=== PATIENT | female | born 2005 | race Caucasian/White ===

== ENCOUNTER 2024-09-28 05:40 | Emergency (ER) | payer OTHER ==
[~2024-09-28] VITALS: Ht 167.6 cm; Wt 78.1 kg
[2024-09-28 05:42] VITALS: BP 128/80; TEMP 98.5; O2SAT 98
[2024-09-28] MEDS: NS (Normal Saline) 0.9% 1,000 ML IV ONE (06:28)
[2024-09-28] MEDS: ACETAMINOPHEN *IV* 1,000 MG in IV 1 EA IV ONE (06:28)
== END 2024-09-28 07:09 | disposition left against medical advice (07) ==
LOC: M ED 05:40
DX: G43.909 Migraine, unspecified, not intractable, without status migrainosus (principal); Z53.20 Procedure and treatment not carried out because of patient's decision for unspecified reasons; Z88.1 Allergy status to other antibiotic agents
CPT/HCPCS: 96374; 96375; 99283; J0131; J2765

== ENCOUNTER → 2024-11-15 | Outpatient (CLI) | payer OTHER | LOC: M WHC 10:02 | PROVIDERS: ATTEND Obstetrics & Gynecology | DX: Z36.89 Encounter for other specified antenatal screening (principal); O32.1XX0 Maternal care for breech presentation, not applicable or unspecified; Z3A.21 21 weeks gestation of pregnancy ==

== ENCOUNTER → 2024-12-17 | Outpatient (CLI) | payer OTHER ==
[2024-12-17 14:04] LABS: PLATELET COUNT, AUTOMATED 329 10^3/uL (150-450)
[2024-12-17 14:07] LABS: GLUCOSE CHALLENGE TEST 1 HOUR 136 MG/DL (LESS THAN 140)
[2024-12-17 14:38] LABS: Trichomonas vaginalis (AMP) NOT DETECTED (NEGATIVE)
[2024-12-17 14:41] LABS: HIV 1&2 SCREEN NEGATIVE (NEGATIVE)
[2024-12-17 14:49] LABS: HEPATITIS C VIRUS ABY INDEX 0.02 INDEX (<0.8)
[2024-12-17 15:01] LABS: GC DNA AMPLIFICATION NEGATIVE (NEGATIVE)
== END ==
LOC: M PLALAB 09:31
PROVIDERS: ATTEND Obstetrics & Gynecology
DX: Z34.92 Encounter for supervision of normal pregnancy, unspecified, second trimester (principal)

== ENCOUNTER → 2024-12-20 | Outpatient (CLI) | payer OTHER | LOC: M WHC 07:09 | PROVIDERS: ATTEND Obstetrics & Gynecology | DX: Z34.82 Encounter for supervision of other normal pregnancy, second trimester (principal) ==

== ENCOUNTER → 2025-02-15 | Outpatient (CLI) | payer OTHER ==
[~2025-02-15] MED LIST: ACET-897 PO; BENA25CA4 PO; FLUO-290 PO; PREN27TA3 PO; TUMS500C PO
[2025-02-15 12:26] LABS: PLATELET COUNT, AUTOMATED 285 10^3/uL (150-450)
[2025-02-15 12:53] LABS: LDH LACTATE DEHYDROGENASE 165 U/L (120-246)
[2025-02-15 12:55] LABS: ALT/SGPT 15 U/L (7.0-40); AST/SGOT 16 U/L (<34); CREATININE FOR GFR 0.51 MG/DL (0.55-1.30); GLOMERULAR FILTRATION RATE > 90.0 (>60)
[2025-02-15 14:51] LABS: TOTAL PROTEIN,RANDOM URINE 25.8 MG/DL (0.0-14.0)
== END ==
LOC: M PLALAB 09:35
PROVIDERS: ATTEND Advanced Practice Midwife
DX: O13.9 Gestational [pregnancy-induced] hypertension without significant proteinuria, unspecified trimester (principal)

== ENCOUNTER 2025-02-16 13:13 | Outpatient (CLI) | payer OTHER ==
[~2025-02-16] VITALS: Ht 167.6 cm; Wt 86.6 kg
[2025-02-16] VITALS (13 sets, daily range): BP systolic 113–137; BP diastolic 64–93; O2SAT 98–99
[2025-02-16] MEDS ORDERED: FLUO-290 PO (13:34)
[2025-02-16] MEDS ORDERED: TUMS500C PO (13:34)
[2025-02-16] MEDS ORDERED: ACET-897 PO (13:34)
[2025-02-16] MEDS ORDERED: PREN27TA3 PO (13:34)
[2025-02-16] MEDS ORDERED: HOME MED LIST COMPLETE! XX SCH (13:40)
== END 2025-02-16 17:52 | disposition home or self-care (01) ==
LOC: M LDO 13:13
PROVIDERS: ATTEND Advanced Practice Midwife
DX: O26.893 Other specified pregnancy related conditions, third trimester (principal); O36.8130 Decreased fetal movements, third trimester, not applicable or unspecified; R10.11 Right upper quadrant pain; R51.9 Headache, unspecified; O13.3 Gestational [pregnancy-induced] hypertension without significant proteinuria, third trimester; Z3A.35 35 weeks gestation of pregnancy
CPT/HCPCS: 59025; 76816; 76820; G0463

== ENCOUNTER 2025-02-18 09:59 | Outpatient (CLI) | payer OTHER ==
[~2025-02-18] VITALS: Ht 167.6 cm; Wt 88.0 kg
[~2025-02-18 09:59] MED LIST changes: -BENA25CA4 PO
[2025-02-18] MEDS ORDERED: BENA25CA4 PO (10:09)
[2025-02-18 10:18] VITALS: BP 137/80
[2025-02-18 10:35] VITALS: BP 118/87
[2025-02-18 10:49] VITALS: BP 115/82
[2025-03-02] MEDS ORDERED: TUMS500C PO (07:57)
[2025-03-03] MEDS ORDERED: COLA100C5 PO (22:25)
[2025-03-03] MEDS ORDERED: IBUP80TA PO (22:25)
[2025-03-05] MEDS ORDERED: LABE20TAB PO (13:36)
[2025-03-05] MEDS ORDERED: PERCOCET PO (13:36)
== END 2025-02-18 16:05 | disposition home or self-care (01) ==
LOC: M LDO 09:59
PROVIDERS: ATTEND Advanced Practice Midwife
DX: O99.353 Diseases of the nervous system complicating pregnancy, third trimester (principal); G43.909 Migraine, unspecified, not intractable, without status migrainosus; O99.343 Other mental disorders complicating pregnancy, third trimester; O10.013 Pre-existing essential hypertension complicating pregnancy, third trimester; F41.9 Anxiety disorder, unspecified; Z3A.35 35 weeks gestation of pregnancy
CPT/HCPCS: 59025; G0463

== ENCOUNTER → 2025-03-01 | Outpatient (CLI) | payer OTHER ==
[~2025-03-01] MED LIST changes: +BENA25CA4 PO; +COLA100C5 PO; +IBUP80TA PO; +LABE20TAB PO; +PERCOCET PO
[2025-03-01 13:56] LABS: PLATELET COUNT, AUTOMATED 254 10^3/uL (150-450)
[2025-03-01 13:59] LABS: LDH LACTATE DEHYDROGENASE 158 U/L (120-246)
[2025-03-01 14:00] LABS: ALT/SGPT 13 U/L (7.0-40); AST/SGOT 17 U/L (<34); CREATININE FOR GFR 0.54 MG/DL (0.55-1.30); GLOMERULAR FILTRATION RATE > 90.0 (>60)
[2025-03-01 17:38] LABS: TOTAL PROTEIN,RANDOM URINE 85.0 MG/DL (0.0-14.0)
== END ==
LOC: M PLALAB 10:57
PROVIDERS: ATTEND Obstetrics & Gynecology
DX: O13.3 Gestational [pregnancy-induced] hypertension without significant proteinuria, third trimester (principal); Z3A.00 Weeks of gestation of pregnancy not specified